=== PATIENT | male | born 1970 | race American Indian/Alaskan Native ===

== ENCOUNTER 2016-06-06 16:37 | Emergency (ER) | payer MEDICAID, OTHER ==
[2016-06-06 16:46] VITALS: BP 157/96; PULSE 78; RESP 16; TEMP 98.3; O2SAT 97; BMI 28.8
--- NOTE | 2016-06-06 16:56 | ED PDOC ---
Arrival/HPI - General Chief Complaint: Eye Problem Time Seen by Provider: 06/06/16 16:51 Historian: Patient - History of Present Illness Narrative History of Present Illness (Text): 06/06/16 16:52 45yo male with PMhx of hypertension present in ED for complaint of left eyebrow lump x one week. States he came to the ED because the swelling became worse. Denies fever, chills, any other complaint. Past Medical History - Provider Review Nursing Documentation Reviewed: Yes - Infectious Disease Hx of Infectious Diseases: None - Tetanus Immunization Tetanus Immunization: Unknown - Cardiac Hx Cardiac Disorders: Yes Hx Hypertension: Yes - Pulmonary Hx Respiratory Disorders: No - Neurological Hx Neurological Disorder: No - HEENT Hx HEENT Disorder: No - Renal Hx Renal Disorder: No - Endocrine/Metabolic Hx Endocrine Disorders: No - Hematological/Oncological Hx Blood Disorders: No - Integumentary Hx Dermatological Disorder: No - Musculoskeletal/Rheumatological Hx Musculoskeletal Disorders: No - Gastrointestinal Hx Gastrointestinal Disorders: No - Genitourinary/Gynecological Hx Genitourinary Disorders: No - Psychiatric Hx Psychophysiologic Disorder: Yes Hx Depression: Yes Hx Emotional Abuse: No Hx Physical Abuse: No Hx Substance Use: No - Surgical History Other/Comment: hemorrhoidectomy 2007 - Suicidal Assessment Feels Threatened In Home Enviroment: No Family/Social History - Physician Review Nursing Documentation Reviewed: Yes Family/Social History: Unknown Family HX Smoking Status: Current Some Days Smoker Hx Alcohol Use: Yes Hx Substance Use: No Allergies/Home Meds Allergies/Adverse Reactions: Allergies No Known Allergies Allergy (Verified 06/18/15 20:11) Home Medications: Home Meds Medication Instructions Recorded Confirmed Hydrochlorothiazide 25 mg PO DAILY 02/19/15 06/18/15 [Hydrochlorothiazide] Review of Systems - Physician Review All systems were reviewed & negative as marked: Yes - Review of Systems Constitutional: Normal Eyes: Normal ENT: Normal Respiratory: Normal Cardiovascular: Normal Gastrointestinal: Normal Genitourinary Male: Normal Musculoskeletal: Normal Neurological: Normal Endocrine: Normal Hemo/Lymphatic: Normal Psychiatric: Normal Physical Exam Vital Signs Reviewed: Yes Vital Signs Temp Pulse Resp BP Pulse Ox 06/06/16 16:44 98.3 F 78 16 157/96 H 97 Temperature: Afebrile Blood Pressure: Normal Pulse: Regular Respiratory Rate: Normal Appearance: Positive for: Well-Appearing, Non-Toxic, Comfortable Pain Distress: None Mental Status: Positive for: Alert and Oriented X 3 - Systems Exam Head: Present: Atraumatic, Normocephalic Pupils: Present: PERRL Extroacular Muscles: Present: EOMI Conjunctiva: Present: Normal Mouth: Present: Moist Mucous Membranes Neck: Present: Normal Range of Motion Respiratory/Chest: Present: Clear to Auscultation, Good Air Exchange. No: Respiratory Distress, Accessory Muscle Use Cardiovascular: Present: Regular Rate and Rhythm, Normal S1, S2. No: Murmurs Abdomen: Present: Normal Bowel Sounds. No: Tenderness, Distention, Peritoneal Signs Back: Present: Normal Inspection Upper Extremity: Present: Normal Inspection. No: Cyanosis, Edema Lower Extremity: Present: Normal Inspection. No: Edema Neurological: Present: GCS=15, CN II-XII Intact, Speech Normal Skin: Present: Warm, Dry, Normal Color, Abscess (Aproximately 1 x 1cm tender pimple/abscess noted inferior to left eyebrow/upper eyelid). No: Rashes Psychiatric: Present: Alert, Oriented x 3, Normal Insight, Normal Concentration Medical Decision Making - Medication Orders Current Medication Orders: Clindamycin HCl (Cleocin) 300 mg PO STAT STA PRN Reason: Protocol Stop: 06/06/16 16:52 Ibuprofen (Motrin Tab) 600 mg PO STAT STA Stop: 06/06/16 16:52 Disposition/Present on Arrival - Present on Arrival Any Indicators Present on Arrival: No History of DVT/PE: No History of Uncontrolled Diabetes: No Urinary Catheter: No History of Decub. Ulcer: No History Surgical Site Infection Following: None - Disposition Have Diagnosis and Disposition been Completed?: Yes Diagnosis: Acne Disposition: HOME/ ROUTINE Disposition Time: 17:00 Patient Plan: Discharge Condition: STABLE Discharge Instructions (ExitCare): Acne (ED) Additional Instructions: Take medication as directed Follow up with your doctor Return to ED for any new or worsening symptoms Prescriptions: Clindamycin [Cleocin] 300 mg PO TID #21 cap Ibuprofen [Motrin Tab] 600 mg PO Q6 #20 tab Referrals: Juno Diop DO [Staff Provider] - Follow up with primary
== END 2016-06-06 17:00 | disposition home or self-care (01) ==
LOC: ED 16:37
DX: L70.9 Acne, unspecified (principal); I10 Essential (primary) hypertension

== ENCOUNTER 2016-09-09 20:10 | Emergency (ER) | payer MEDICAID ==
[2016-09-09 20:17] VITALS: BP 165/106; PULSE 97; TEMP 97.8; O2SAT 98; BMI 29.6
[2016-09-09] MEDS ORDERED: Tmp-Smz 800 mg-160 mg DS Tab PO STA (20:35)
--- NOTE | 2016-09-09 20:38 | ED PDOC ---
Arrival/HPI - General Chief Complaint: Abnormal Skin Integrity Time Seen by Provider: 09/09/16 20:17 Historian: Patient - History of Present Illness Narrative History of Present Illness (Text): 09/09/16 20:35 45 y.o. male whose pmhx includes hypertension who comes to the ED with an itchy rash on his face x 1 week. He says he spoke to Dr. Diop, who told him to discontinue his hydrochlorothiazide. The patient comes to the ED with a worsening rash; no fever or throat itching or swelling or sob. Past Medical History - Infectious Disease Hx of Infectious Diseases: None - Tetanus Immunization Tetanus Immunization: Unknown - Cardiac Hx Cardiac Disorders: Yes Hx Hypertension: Yes - Pulmonary Hx Respiratory Disorders: No - Neurological Hx Neurological Disorder: Yes Hx Migraine: Yes - HEENT Hx HEENT Disorder: No - Renal Hx Renal Disorder: No - Endocrine/Metabolic Hx Endocrine Disorders: No - Hematological/Oncological Hx Blood Disorders: No - Integumentary Hx Dermatological Disorder: No - Musculoskeletal/Rheumatological Hx Musculoskeletal Disorders: No - Gastrointestinal Hx Gastrointestinal Disorders: No - Genitourinary/Gynecological Hx Genitourinary Disorders: No - Psychiatric Hx Psychophysiologic Disorder: Yes Hx Depression: Yes Hx Emotional Abuse: No Hx Physical Abuse: No Hx Substance Use: No - Surgical History Other/Comment: hemorrhoidectomy 2007 - Anesthesia Hx Anesthesia: Yes Hx Anesthesia Reactions: No - Suicidal Assessment Feels Threatened In Home Enviroment: No Family/Social History Family/Social History: No Known Family HX Smoking Status: Current Some Days Smoker Hx Alcohol Use: Yes Hx Substance Use: No Allergies/Home Meds Allergies/Adverse Reactions: Allergies No Known Allergies Allergy (Verified 06/18/15 20:11) Home Medications: Home Meds Medication Instructions Recorded Confirmed Hydrochlorothiazide 25 mg PO DAILY 02/19/15 09/09/16 [Hydrochlorothiazide] Review of Systems - Review of Systems Constitutional: absent: Fevers Eyes: Normal ENT: absent: Other (no throat swelling) Respiratory: absent: SOB, Cough Cardiovascular: absent: Chest Pain Skin: Rash, Pruritis Physical Exam Vital Signs Temp Pulse Resp BP Pulse Ox 09/09/16 20:16 97.8 F 97 H 19 165/106 H 98 Temperature: Afebrile Blood Pressure: Hypertensive Pulse: Regular Respiratory Rate: Normal Appearance: Positive for: Well-Appearing, Non-Toxic, Comfortable Pain Distress: None Mental Status: Positive for: Alert and Oriented X 3 - Systems Exam Head: Present: Atraumatic, Normocephalic, Other (There is a dry scaly rash, about 2x3 cm in the lower forehead above the nasal bridge; mild warmth with mild erythema; no fluctuance) Pupils: Present: PERRL Mouth: Present: Moist Mucous Membranes Pharnyx: Present: Normal. No: ERYTHEMA, EXUDATE, TONSILS ENLARGED, Peritonsilar Swelling, Uvular Deviation, Muffled/Hoarse Voice, Strider, Soft Palate/Uvular Edema Neck: Present: Normal Range of Motion Respiratory/Chest: Present: Clear to Auscultation, Good Air Exchange. No: Respiratory Distress, Accessory Muscle Use Cardiovascular: Present: Regular Rate and Rhythm, Normal S1, S2. No: Murmurs Medical Decision Making ED Course and Treatment: 09/09/16 20:41 Patient with noted history with presentation consistent with dermatitis, possibly allergic. The lesion may also be getting infected with cellulitis. No fluctuance is present to suggest any drainable collection at this time. Will start on oral steroids to avoid topical steroids on face as well as antibiotic. He says he will follow up with Dr. Diop in two days. - Medication Orders Current Medication Orders: Hydroxyzine HCl (Atarax) 25 mg PO ONCE STA Stop: 09/09/16 20:35 Prednisone (Prednisone Tab) 40 mg PO STAT STA Stop: 09/09/16 20:35 Trimethoprim/Sulfamethoxazole (Bactrim Ds Tab) 1 tab PO STAT STA PRN Reason: Protocol Stop: 09/09/16 20:36 Disposition/Present on Arrival - Present on Arrival Any Indicators Present on Arrival: No History of DVT/PE: No History of Uncontrolled Diabetes: No Urinary Catheter: No History of Decub. Ulcer: No History Surgical Site Infection Following: None - Disposition Have Diagnosis and Disposition been Completed?: Yes Diagnosis: Facial dermatitis Disposition: HOME/ ROUTINE Disposition Time: 20:45 Patient Plan: Discharge Condition: GOOD Additional Instructions: Take the medications as prescribed. Follow up with Dr. Diop as scheduled. Return to the emergency department if any new concerning symptoms. Prescriptions: hydrOXYzine HCl [Atarax] 1 tab PO Q6H PRN #20 tab PRN Reason: Itching / Pruritus predniSONE [Prednisone] 2 tab PO DAILY #10 tab Sulfamethoxazole/Trimethoprim [Bactrim DS 800 mg-160 mg] 1 tab PO BID #14 tab Referrals: Juno Diop DO [Primary Care Provider] - Follow up with primary
[2016-09-09 21:15] VITALS: RESP 16
== END 2016-09-09 21:15 | disposition home or self-care (01) ==
LOC: ED 20:10
DX: L30.9 Dermatitis, unspecified (principal)

== ENCOUNTER 2017-02-16 19:47 | Emergency (ER) | payer MEDICAID ==
[2017-02-16 19:47] VITALS: BMI 29.6
[2017-02-16 20:26] VITALS: TEMP 98.8
[2017-02-16] MEDS ORDERED: Promethazine DM 6.25 mg-15 mg/5 ml Syrup PO ONE (20:51)
--- NOTE | 2017-02-16 21:00 | ED PDOC ---
Arrival/HPI - General Chief Complaint: Cough, Cold, Congestion Time Seen by Provider: 02/16/17 20:34 Historian: Patient - History of Present Illness Narrative History of Present Illness (Text): 02/16/17 20:45 Nyla Miller is a 46 year old male, whose past medical history includes hypertension, who presents to the Emergency department complaining of non- productive dry cough. Patient also complaining of an episode of epistaxis earlier today, which has now resolved. Patient denies any fever, chills, chest pain, shortness of breath, nausea, vomiting, headache, dizziness, or any other complaints. Time/Duration: Other (today) Symptom Onset: Gradual Symptom Course: Unchanged Activities at Onset: Light Context: Home Past Medical History - Provider Review Nursing Documentation Reviewed: Yes - Infectious Disease Hx of Infectious Diseases: None - Tetanus Immunization Tetanus Immunization: Unknown - Cardiac Hx Cardiac Disorders: Yes Hx Hypertension: Yes - Pulmonary Hx Respiratory Disorders: No - Neurological Hx Neurological Disorder: No - HEENT Hx HEENT Disorder: No - Renal Hx Renal Disorder: No - Endocrine/Metabolic Hx Endocrine Disorders: No - Hematological/Oncological Hx Blood Disorders: No - Integumentary Hx Dermatological Disorder: No - Musculoskeletal/Rheumatological Hx Musculoskeletal Disorders: No - Gastrointestinal Hx Gastrointestinal Disorders: No - Genitourinary/Gynecological Hx Genitourinary Disorders: No - Psychiatric Hx Psychophysiologic Disorder: Yes Hx Depression: Yes Hx Emotional Abuse: No Hx Physical Abuse: No Hx Substance Use: No - Surgical History Other/Comment: hemorrhoidectomy 2007 - Anesthesia Hx Anesthesia: Yes Hx Anesthesia Reactions: No - Suicidal Assessment Feels Threatened In Home Enviroment: No Family/Social History - Physician Review Nursing Documentation Reviewed: Yes Family/Social History: Unknown Family HX Smoking Status: Current Some Days Smoker Hx Alcohol Use: Yes Hx Substance Use: No Allergies/Home Meds Allergies/Adverse Reactions: Allergies No Known Allergies Allergy (Verified 06/18/15 20:11) Home Medications: Home Meds Medication Instructions Recorded Confirmed hydroCHLOROthiazide [Hydrodiuril] 25 mg PO DAILY 02/16/17 02/16/17 Review of Systems - Physician Review All systems were reviewed & negative as marked: Yes - Review of Systems Constitutional: Normal. absent: Fevers Eyes: Normal ENT: Epistaxis Respiratory: Cough. absent: SOB, Sputum, Wheezing Cardiovascular: Normal. absent: Chest Pain Gastrointestinal: Normal. absent: Abdominal Pain, Diarrhea, Nausea, Vomiting Genitourinary Male: Normal. absent: Dysuria, Frequency, Hematuria, Urinary Output Changes Musculoskeletal: Normal. absent: Back Pain, Neck Pain Skin: Normal. absent: Rash Neurological: Normal. absent: Headache, Dizziness Endocrine: Normal Hemo/Lymphatic: Normal Psychiatric: Normal Physical Exam Vital Signs Reviewed: Yes Vital Signs Temp Pulse Resp BP Pulse Ox 02/16/17 21:10 80 19 150/90 100 02/16/17 20:25 98.8 F 86 16 170/110 H 97 Temperature: Afebrile Blood Pressure: Hypertensive Pulse: Regular Respiratory Rate: Normal Appearance: Positive for: Well-Appearing, Non-Toxic, Comfortable Pain Distress: None Mental Status: Positive for: Alert and Oriented X 3 - Systems Exam Head: Present: Atraumatic, Normocephalic Pupils: Present: PERRL Extroacular Muscles: Present: EOMI Conjunctiva: Present: Normal Ears: Present: Normal, NORMAL TM, Normal Canal. No: Erythema, TM Bulging, Fluid , TM Perf Mouth: Present: Moist Mucous Membranes Pharnyx: Present: Normal. No: ERYTHEMA, EXUDATE, TONSILS ENLARGED, Peritonsilar Swelling, Uvular Deviation, Muffled/Hoarse Voice, Strider, Soft Palate/Uvular Edema Nose (External): Present: Atraumatic Nose (Internal): Present: No Active Bleeding, Other (Dry blood in right naris). No: Epistaxis Neck: Present: Normal Range of Motion Respiratory/Chest: Present: Clear to Auscultation, Good Air Exchange. No: Respiratory Distress, Accessory Muscle Use Cardiovascular: Present: Regular Rate and Rhythm, Normal S1, S2. No: Murmurs Abdomen: Present: Normal Bowel Sounds. No: Tenderness, Distention, Peritoneal Signs Back: Present: Normal Inspection Upper Extremity: Present: Normal Inspection. No: Cyanosis, Edema Lower Extremity: Present: Normal Inspection. No: Edema Neurological: Present: GCS=15, CN II-XII Intact, Speech Normal Skin: Present: Warm, Dry, Normal Color. No: Rashes Psychiatric: Present: Alert, Oriented x 3, Normal Insight, Normal Concentration Medical Decision Making ED Course and Treatment: 02/16/17 20:45 Impression: 46 year old male complaining of non-productive dry cough with 1 episode of epistaxis. Differential Diagnosis included but are not limited to: bronchitis vs. epistaxis Plan: -- Phenergan -- Zithromax -- Reassess and disposition Prior Visits: Notes and results from previous visits were reviewed. On 09/09/2016, pt was seen in the Emergency department for pruritic rash. Pt was d/c home. Progress Notes: On re-evaluation, patient feels better and is in no acute distress. Patient in agreement with plan to be discharged home. Patient is stable for discharge. Patient was instructed to follow up with physician or return if symptoms worsen or new concerning symptoms arise. - Medication Orders Current Medication Orders: Discontinued Medications Azithromycin (Zithromax) 500 mg PO ONCE STA PRN Reason: Protocol Stop: 02/16/17 20:50 Last Admin: 02/16/17 21:16 Dose: 500 mg Promethazine HCl/Dextromethorphan (Phenergan Dm Syrup) 5 ml PO ONCE ONE Stop: 02/16/17 20:52 Last Admin: 02/16/17 21:18 Dose: 5 ml - Scribe Statement The provider has reviewed the documentation as recorded by the Talia Perdomo Provider Scribe Attestation: All medical record entries made by the Sheronibmynor were at my direction and personally dictated by me. I have reviewed the chart and agree that the record accurately reflects my personal performance of the history, physical exam, medical decision making, and the department course for this patient. I have also personally directed, reviewed, and agree with the discharge instructions and disposition. Disposition/Present on Arrival - Present on Arrival Any Indicators Present on Arrival: No History of DVT/PE: No History of Uncontrolled Diabetes: No Urinary Catheter: No History of Decub. Ulcer: No History Surgical Site Infection Following: None - Disposition Have Diagnosis and Disposition been Completed?: Yes Diagnosis: Bronchitis, Epistaxis Disposition: HOME/ ROUTINE Disposition Time: 21:01 Patient Plan: Discharge Condition: STABLE Discharge Instructions (ExitCare): Nosebleed (ED), Acute Bronchitis (ED) Additional Instructions: Take meds as prescribed/use room humidifier/No blowing of nose or digital trauma /follow up with your doctor Prescriptions: Benzonatate [Tessalon Perles] 100 mg PO TID PRN #21 sgl PRN Reason: Cough Azithromycin [Zithromax] 250 mg PO DAILY #4 tab Referrals: Juno Diop [Primary Care Provider] - Follow up with primary Forms: [employer] (Kiswahili)
[2017-02-16 21:11] VITALS: BP 150/90; PULSE 80; RESP 19; O2SAT 100
--- NOTE | 2017-02-17 20:02 | CARD ---
APPROVED REPORT EKG Measurement Heart [id number] <Conclusion> Normal sinus rhythm Normal ECG
== END 2017-02-16 21:20 | disposition home or self-care (01) ==
LOC: ED 19:47
DX: J40 Bronchitis, not specified as acute or chronic (principal); R04.0 Epistaxis; I10 Essential (primary) hypertension

== ENCOUNTER 2017-03-02 16:32 | Emergency (ER) | payer MEDICAID ==
[2017-03-02 16:43] VITALS: O2SAT 100; BMI 30.2
[2017-03-02 17:28] LABS: BASO # 0.01 K/mm3 (0.0-2.0); BASO % 0.2 % (0.0-3.0); EOS # 0.1 (0.0-0.7); EOS % 1.6 % (1.5-5.0); GRAN # 2.62 (1.4-6.5); HEMATOCRIT 42.1 % (42.0-52.0); LYMPH # 1.9 (1.2-3.4); MEAN CELL VOLUME 83.5 fl (80.0-105.0); MEAN CORPUSCULAR HEMOGLOBIN 28.6 pg (25.0-35.0); MEAN CORPUSCULAR HGB CONC 34.2 g/dl (31.0-37.0); MEAN PLATELET VOLUME 10.8 fl (7.0-11.0); MONO # 0.3 (0.1-0.6); MONO % 5.3 % (1.0-6.0); RED CELL DISTRIBUTION WIDTH 13.9 % (11.5-14.5); WHITE BLOOD COUNT 4.9 10^3/ul (4.5-11.0)
[2017-03-02 17:30] LABS: GRAN % 54.9 % (50.0-68.0)
[2017-03-02 17:35] LABS: ALB/GLOB RATIO 1.3 (1.1-1.8); BILIRUBIN,TOTAL 0.6 mg/dL (0.2-1.3); CALCIUM 8.8 mg/dL (8.4-10.5); GFR AFRICAN-AMERICAN > 60; GLUCOSE,RANDOM 98 mg/dL (70-110); LIPASE 92 U/L (23-300); TOTAL PROTEIN 7.5 g/dL (5.8-8.3)
[2017-03-02 17:53] LABS: TROPONIN I 0.02 ng/mL
[2017-03-02 17:56] LABS: ALKALINE PHOSPHATASE 77 U/L (38-126); ALT/SGPT 133 U/L (7-56); AST/SGOT 120 U/L (17-59); BLOOD UREA NITROGEN 11 mg/dL (7-21); CARBON DIOXIDE 25 mmol/L (21-33); CHLORIDE 107 mmol/L (98-107); SODIUM 139 mmol/L (132-148)
--- NOTE | 2017-03-02 18:07 | ED PDOC ---
Arrival/HPI - General Historian: Patient - History of Present Illness Time/Duration: < week Symptom Onset: Sudden Symptom Course: Unchanged Activities at Onset: Rest Context: Home - General Chief Complaint: Back Pain Time Seen by Provider: 03/02/17 16:55 - History of Present Illness Narrative History of Present Illness (Text): 03/02/17 18:29 A 46 year old male, whose past medical history includes hypertension, presents to the emergency department complaining of left flank pain for the past three days. Patient reports left flank pain developed three days ago and describes it as a constant and sharp pain. Reports to taking aspirin with some improvement. No pleuritic components, not worse with movement. Denies any trauma or injury. Patient denies any fever, chills, cough, shortness of breath, chest pain, nausea , vomiting, diarrhea, urinary symptoms, abdominal pain or any other complaints at this time. No history of kidney stones. PMD: Dr. Diop (Manda Camacho PA-C) Past Medical History - Provider Review Nursing Documentation Reviewed: Yes - Infectious Disease Hx of Infectious Diseases: None - Tetanus Immunization Tetanus Immunization: Unknown - Cardiac Hx Cardiac Disorders: Yes Hx Hypertension: Yes - Pulmonary Hx Respiratory Disorders: No - Neurological Hx Neurological Disorder: No - HEENT Hx HEENT Disorder: No - Renal Hx Renal Disorder: No - Endocrine/Metabolic Hx Endocrine Disorders: No - Hematological/Oncological Hx Blood Disorders: No - Integumentary Hx Dermatological Disorder: No - Musculoskeletal/Rheumatological Hx Musculoskeletal Disorders: No - Gastrointestinal Hx Gastrointestinal Disorders: No - Genitourinary/Gynecological Hx Genitourinary Disorders: No - Psychiatric Hx Psychophysiologic Disorder: Yes Hx Depression: Yes Hx Emotional Abuse: No Hx Physical Abuse: No Hx Substance Use: No - Surgical History Other/Comment: hemorrhoidectomy 2007 - Anesthesia Hx Anesthesia: Yes Hx Anesthesia Reactions: No - Suicidal Assessment Feels Threatened In Home Enviroment: No Family/Social History - Physician Review Nursing Documentation Reviewed: Yes Family/Social History: No Known Family HX Smoking Status: Current Some Days Smoker Hx Alcohol Use: Yes Hx Substance Use: No Allergies/Home Meds Allergies/Adverse Reactions: Allergies No Known Allergies Allergy (Verified 03/02/17 16:43) Home Medications: Home Meds Medication Instructions Recorded Confirmed hydroCHLOROthiazide [Hydrodiuril] 25 mg PO DAILY 02/16/17 03/02/17 Review of Systems - Physician Review All systems were reviewed & negative as marked: Yes - Review of Systems Constitutional: absent: Fevers, Other (chills) Respiratory: absent: SOB, Cough Cardiovascular: absent: Chest Pain Gastrointestinal: absent: Abdominal Pain, Diarrhea, Nausea, Vomiting Genitourinary Male: absent: Dysuria, Frequency, Hematuria Musculoskeletal: Other (left flank pain) Physical Exam Vital Signs Reviewed: Yes Temperature: Afebrile Blood Pressure: Hypertensive Pulse: Regular Respiratory Rate: Normal Appearance: Positive for: Well-Appearing, Non-Toxic, Comfortable Pain Distress: None Mental Status: Positive for: Alert and Oriented X 3 - Systems Exam Head: Present: Atraumatic, Normocephalic Pupils: Present: PERRL Extroacular Muscles: Present: EOMI Conjunctiva: Present: Normal Mouth: Present: Moist Mucous Membranes Neck: Present: Normal Range of Motion Respiratory/Chest: Present: Clear to Auscultation, Good Air Exchange. No: Respiratory Distress, Accessory Muscle Use Cardiovascular: Present: Regular Rate and Rhythm, Normal S1, S2. No: Murmurs Abdomen: Present: Normal Bowel Sounds. No: Tenderness, Distention, Peritoneal Signs Back: Present: Normal Inspection Upper Extremity: Present: Normal Inspection. No: Cyanosis, Edema Lower Extremity: Present: Normal Inspection. No: Edema Neurological: Present: GCS=15, CN II-XII Intact, Speech Normal Skin: Present: Warm, Dry, Normal Color. No: Rashes Psychiatric: Present: Alert, Oriented x 3, Normal Insight, Normal Concentration Vital Signs Temp Pulse Resp BP Pulse Ox 03/02/17 20:00 98.4 F 77 17 150/90 100 03/02/17 18:32 98.2 F 78 17 150/98 H 100 03/02/17 16:43 98.0 F 77 18 155/104 H 100 03/02/17 16:42 98.0 F 77 17 155/104 H 100 Medical Decision Making - Lab Interpretations I have reviewed the lab results: Yes - EKG Interpretation Interpreted by ED Physician: Yes Type: 12 lead EKG ED Course and Treatment: 03/02/17 18:27 Impression: A 46 year old male with left flank pain. Plan: -- EKG -- chest xray -- US abdomen -- labs -- Urinalysis -- Reassess and disposition Prior Visits: Notes and results from previous visits were reviewed. Patient was last seen in the emergency department on 02/16/17 for evaluation of non-productive dry cough and episode of epistaxis. Progress Notes: 03/02/17 18:24 chest xray Creator : Jenna Parry MD FINDINGS: LUNGS: Biapical pleural thickening. No focal consolidation. Please note that chest x-ray has limited sensitivity for the detection of pulmonary masses. PLEURA: No significant pleural effusion identified. No definite pneumothorax . CARDIOVASCULAR: Heart size appears within normal limits. Ectatic aorta. OSSEOUS STRUCTURES: No acute osseous abnormality identified. VISUALIZED UPPER ABDOMEN: Unremarkable. IMPRESSION: Biapical pleural thickening. No focal consolidation, significant pleural effusion, or definite pneumothorax identified. 03/02/17 18:15 US abdomen Creator : Rocky Medley MD IMPRESSION: Echogenic hepatic parenchyma likely representing fatty hepatic infiltration however other infiltrative hepatocellular disease process not excluded. Small exophytic cyst mid to lower pole left kidney EKG: Ordered, reviewed, and independently interpreted the EKG. Rate : 68 BPM Rhythm : NSR Interpretation : No ST-segment elevations or depressions, no T-wave inversions, normal intervals. On reevaluation, patient is laying in bed comfortably in no acute distress. Denies any shortness of breath, chest pain, abdominal pain, nausea, vomiting. On repeat exam, lungs are clear to auscultation, cardiac regular rate and rhythm , abdomen remained soft and nontender. VS : T 98.4 P 77 BP 150/90 R 17 O2sat 100 %. Lab results reviewed and are wnl, trop (-), UA is (-) for blood and infection. CXR and US abdomen shows no acute findings. Diagnostic results d/w the patient. Patient advised to follow up with primary care physician in 1-2 days without fail. Return to the emergency room at any time for any new or worsening symptoms. Patient states he fully agrees with and understands discharge instructions. States that he agrees with the plan and disposition. Verbalized and repeated discharge instructions and plan. I have given the patient opportunity to ask any additional questions. (Doug SPICER,Manda Lawton) - Lab Interpretations Lab Results: 03/02/17 17:15 03/02/17 17:15 Lab Results 03/02/17 18:46: Urine Color Yellow, Urine Appearance Clear, Urine pH 6.0, Ur Specific Alexander >= 1.030, Urine Protein Negative, Urine Glucose (UA) Negative, Urine Ketones Negative, Urine Blood Negative, Urine Nitrate Negative, Urine Bilirubin Negative, Urine Urobilinogen 0.2, Ur Leukocyte Esterase Negative 03/02/17 17:15: Sodium 139, Potassium 4.0, Chloride 107, Carbon Dioxide 25, Anion Gap 11, BUN 11, Creatinine 1.1, Est GFR ( Amer) > 60, Est GFR (Non- Af Amer) > 60, Random Glucose 98, Calcium 8.8, Total Bilirubin 0.6, AST 120 H, ALT 133 H, Alkaline Phosphatase 77, Troponin I 0.02, Total Protein 7.5, Albumin 4.3, Globulin 3.2, Albumin/Globulin Ratio 1.3, Lipase 92 03/02/17 17:15: WBC 4.9, RBC 5.04, Hgb 14.4, Hct 42.1, MCV 83.5, MCH 28.6, MCHC 34.2, RDW 13.9, Plt Count 181, MPV 10.8, Gran % 54.9, Lymph % (Auto) 38.0 H, Bell % (Auto) 5.3, Eos % (Auto) 1.6, Baso % (Auto) 0.2, Gran # 2.62, Lymph # 1.9 , Bell # 0.3, Eos # 0.1, Baso # 0.01 - RAD Interpretation Radiology Orders: 03/02/17 CHEST TWO VIEWS (PA/LAT) [RAD] Stat 03/02/17 17:02 ABDOMEN COMPLETE [US] Stat - Medication Orders Current Medication Orders: Discontinued Medications Naproxen (Anaprox Ds) 550 mg PO ONCE STA Stop: 03/02/17 20:03 - PA / FORGING ROLL OPERATOR / Resident Statement MD/DO has reviewed & agrees with the documentation as recorded. - Scribe Statement The provider has reviewed the documentation as recorded by the Scribe - Scribe Statement Ailyn Nugent Provider Scribe Attestation: All medical record entries made by the Scribe were at my direction and personally dictated by me. I have reviewed the chart and agree that the record accurately reflects my personal performance of the history, physical exam, medical decision making, and the department course for this patient. I have also personally directed, reviewed, and agree with the discharge instructions and disposition. (Doug SPICER,Manda Lawton) Disposition/Present on Arrival - Present on Arrival Any Indicators Present on Arrival: No History of DVT/PE: No History of Uncontrolled Diabetes: No Urinary Catheter: No History of Decub. Ulcer: No History Surgical Site Infection Following: None - Disposition Have Diagnosis and Disposition been Completed?: Yes Disposition Time: 19:53 Patient Plan: Discharge - Disposition Diagnosis: Left flank pain Disposition: HOME/ ROUTINE Condition: STABLE Discharge Instructions (ExitCare): Flank Pain (ED) Print Language: UGANDAN Additional Instructions: Thank you for letting us take care of you today. You were treated for flank pain - likely musculoskeletal pain. The emergency medical care you received today was directed at your acute symptoms. Return to the Emergency Department if your symptoms worsen, do not improve, or if you have any other problems. Please contact your doctor in 2 days for re-evaluation and follow up / or call one of the physicians/clinics you have been referred to that are listed on the Patient Visit Information form that is included in your discharge packet. Bring any paperwork you were given at discharge with you along with any medications you are taking to your follow up visit. Our treatment cannot replace ongoing medical care by a primary care provider (PCP) outside of the emergency department. Thank you for allowing the [facility] team to be part of your care today. Referrals: Paramjit Rogers MD [Staff Provider] - Follow up with primary Juno Diop DO [Primary Care Provider] - Follow up with primary Forms: [employer] ([employer])
--- NOTE | 2017-03-02 18:13 | US ---
HISTORY: Left flank pain. Rule out renal colic. Rule out hydronephrosis. COMPARISON: None. TECHNIQUE: Sonographic evaluation of the abdomen. FINDINGS: LIVER: Liver measures approximately 15 cm in CC dimension. Liver demonstrates smooth contour though increased echotexture likely fatty infiltration however other infiltrative hepatocellular disease process not excluded. No obvious hepatic masses or collections seen on images presented. . No gross intrahepatic biliary ductal dilatation. No evidence of ascites GALLBLADDER: Unremarkable. No gallstones. No pericholecystic fluid collections or sonographic Casillas sign. COMMON BILE DUCT: Measures 4.6 mm. No stones. No dilatation. PANCREAS: Unremarkable as visualized. No mass. No ductal dilatation. RIGHT KIDNEY: Right kidney measures approximate 10.7 x 4.5 x 5.8cm. Normal echogenicity. No calculus, mass, or hydronephrosis. . LEFT KIDNEY: Left kidney measures approximate 11.8 x 4.4 x 5.8cm. Normal echogenicity. No calculus, mass, or hydronephrosis.There is a small exophytic cyst mid-lower pole left kidney that measures approximately 1.3 cm in greatest dimension. SPLEEN: Spleen exhibits normal size measuring approximately 9.6 cm in greatest dimension. No splenic masses collections or calcifications seen on images presented. AORTA: No aneurysmal dilatation. IVC: Unremarkable. OTHER FINDINGS: None. IMPRESSION: Echogenic hepatic parenchyma likely representing fatty hepatic infiltration however other infiltrative hepatocellular disease process not excluded. Small exophytic cyst mid to lower pole left kidney
--- NOTE | 2017-03-02 18:23 | RAD ---
HISTORY: L flank pain COMPARISON: Chest x-ray performed 08/29/14 TECHNIQUE: Chest PA and lateral FINDINGS: LUNGS: Biapical pleural thickening. No focal consolidation. Please note that chest x-ray has limited sensitivity for the detection of pulmonary masses. PLEURA: No significant pleural effusion identified. No definite pneumothorax . CARDIOVASCULAR: Heart size appears within normal limits. Ectatic aorta. OSSEOUS STRUCTURES: No acute osseous abnormality identified. VISUALIZED UPPER ABDOMEN: Unremarkable. OTHER FINDINGS: None. IMPRESSION: Biapical pleural thickening. No focal consolidation, significant pleural effusion, or definite pneumothorax identified.
[2017-03-02 19:07] LABS: URINE BILIRUBIN NEGATIVE (NEGATIVE); URINE BLOOD NEGATIVE (NEGATIVE); URINE GLUCOSE (UA) NEGATIVE (NEGATIVE); URINE KETONE NEGATIVE (NEGATIVE); URINE LEUKOCYTE ESTERASE NEGATIVE Leu/uL (NEGATIVE); URINE PROTEIN NEGATIVE mg/dL (<30 mg/dL); URINE UROBILINOGEN 0.2 E.U./dL (<1 E.U./dL)
[2017-03-02 19:12] LABS: URINE APPEARANCE CLEAR (CLEAR); URINE COLOR YELLOW (YELLOW)
[2017-03-02 19:14] VITALS: RESP 17
[2017-03-02] MEDS ORDERED: Naproxen 550 mg Tab PO STA (20:02)
[2017-03-02 20:16] VITALS: BP 150/90; PULSE 77; TEMP 98.4
--- NOTE | 2017-03-03 17:50 | CARD ---
APPROVED REPORT EKG Measurement Heart [id number] <Conclusion> Normal sinus rhythm T wave abnormality, consider inferior ischemia Abnormal ECG
== END 2017-03-02 20:16 | disposition home or self-care (01) ==
LOC: ED 16:32
DX: R10.9 Unspecified abdominal pain (principal); I10 Essential (primary) hypertension

== ENCOUNTER 2017-07-28 02:02 | Emergency (ER) | payer MEDICAID ==
[2017-07-28 02:22] VITALS: RESP 18
[2017-07-28 02:27] VITALS: BMI 31.1
--- NOTE | 2017-07-28 02:46 | ED PDOC ---
Arrival/HPI - General Chief Complaint: Upper Extremity Problem/Injury Time Seen by Provider: 07/28/17 02:23 - History of Present Illness Narrative History of Present Illness (Text): 07/28/17 02:44 Patient is a 46 year old male who presents to the Emergency department complaining of right shoulder and neck pain, which started yesterday. Patient denies any other associated symptoms. He denies any fever, chills, dyspnea, chest pain, or other symptoms at this point in time. Time/Duration: 24 hours (Yesterday) Past Medical History - Provider Review Nursing Documentation Reviewed: Yes - Infectious Disease Hx of Infectious Diseases: None - Tetanus Immunization Tetanus Immunization: Unknown - Cardiac Hx Cardiac Disorders: Yes Hx Hypertension: Yes - Pulmonary Hx Respiratory Disorders: No - Neurological Hx Neurological Disorder: No - HEENT Hx HEENT Disorder: No - Renal Hx Renal Disorder: No - Endocrine/Metabolic Hx Endocrine Disorders: No - Hematological/Oncological Hx Blood Disorders: No - Integumentary Hx Dermatological Disorder: No - Musculoskeletal/Rheumatological Hx Musculoskeletal Disorders: No - Gastrointestinal Hx Gastrointestinal Disorders: No - Genitourinary/Gynecological Hx Genitourinary Disorders: No - Psychiatric Hx Psychophysiologic Disorder: Yes Hx Depression: Yes Hx Physical Abuse: No Hx Substance Use: No - Surgical History Other/Comment: hemorrhoidectomy 2007 - Anesthesia Hx Anesthesia: Yes Hx Anesthesia Reactions: No - Suicidal Assessment Feels Threatened In Home Enviroment: No Family/Social History - Physician Review Nursing Documentation Reviewed: Yes Family/Social History: No Known Family HX Smoking Status: Current Some Days Smoker Hx Alcohol Use: Yes Hx Substance Use: No Allergies/Home Meds Allergies/Adverse Reactions: Allergies No Known Allergies Allergy (Verified 07/28/17 02:27) Home Medications: Home Meds Medication Instructions Recorded Confirmed hydroCHLOROthiazide [Hydrodiuril] 25 mg PO DAILY 02/16/17 07/28/17 Review of Systems - Physician Review All systems were reviewed & negative as marked: Yes - Review of Systems Constitutional: absent: Fevers, Night Sweats Respiratory: absent: SOB Cardiovascular: absent: Chest Pain Musculoskeletal: Neck Pain (neck and shoulder pain) Physical Exam Vital Signs Reviewed: Yes Vital Signs Temp Pulse Resp BP Pulse Ox 07/28/17 04:00 97.6 F 78 18 140/84 98 07/28/17 02:21 97.8 F 81 18 152/106 H 97 Blood Pressure: Hypertensive Pulse: Regular Respiratory Rate: Normal Appearance: Positive for: Well-Appearing Mental Status: Positive for: Alert and Oriented X 3 - Systems Exam Head: Present: Atraumatic, Normocephalic Pupils: Present: PERRL Extroacular Muscles: Present: EOMI Conjunctiva: Present: Normal Mouth: Present: Moist Mucous Membranes Neck: Present: Normal Range of Motion, Paraspinal Tenderness (Right paraservical muscle spasm). No: MIDLINE TENDERNESS Respiratory/Chest: Present: Clear to Auscultation, Good Air Exchange. No: Respiratory Distress, Accessory Muscle Use Cardiovascular: Present: Regular Rate and Rhythm, Normal S1, S2. No: Murmurs Abdomen: No: Tenderness, Distention, Peritoneal Signs Back: Present: Normal Inspection Upper Extremity: Present: Normal Inspection. No: Cyanosis, Edema Lower Extremity: Present: Normal Inspection. No: Edema Neurological: Present: GCS=15, CN II-XII Intact, Speech Normal Skin: Present: Warm, Dry, Normal Color. No: Rashes Psychiatric: Present: Alert, Oriented x 3, Normal Insight, Normal Concentration Medical Decision Making ED Course and Treatment: 07/28/17 02:44 Impression: Patient is a 46 year old male who is experiencing right neck and shoulder pain. Differential Diagnosis included but are not limited to: Torticollis vs muscle strain vs muscle spasm Plan: --Flexeril --Toradol IM -- Reassess and disposition Prior Visits: Notes and results from previous visits were reviewed. Patient was last seen in the emergency department on 03/02/17 for left flank pain and was evaluated and discharged. Progress Notes: 07/28/17 04:07 Reevaluation: On reevaluation the patient feels better and is in no acute distress. I have discussed the results and plan with the patient, who expresses understanding. Patient given the opportunity to ask question, all questions were answered and there is agreement with the plan to discharge the patient home with prescription for Flexeril and Naprosyn. Patient is stable for discharge. Patient was instructed to follow up with physician/clinic in 1-2 days or return if symptoms persist/worsen or new concerning symptoms arise. - Medication Orders Current Medication Orders: Discontinued Medications Cyclobenzaprine HCl (Flexeril) 10 mg PO ONCE ONE Stop: 07/28/17 02:48 Last Admin: 07/28/17 03:03 Dose: 10 mg Ketorolac Tromethamine (Toradol) 60 mg IM ONCE ONE Stop: 07/28/17 02:48 Last Admin: 07/28/17 03:04 Dose: 60 mg MAR Pain Assessment Document 07/28/17 03:04 WALLACE (Rec: 07/28/17 03:04 WALLACE [id number]) Pain Reassessment Is this a pain reassessment? Yes Presence of Pain Presence of Pain Yes Location Pain Location Body Site Shoulder IM Administration Charges Document 07/28/17 03:04 WALLACE (Rec: 07/28/17 03:04 WALLACE [id number]) Charges for Administration # of IM Administrations 1 - Scribe Statement The provider has reviewed the documentation as recorded by the Scribe Gabriel Buenrostro Provider Scribe Attestation: All medical record entries made by the Scribe were at my direction and personally dictated by me. I have reviewed the chart and agree that the record accurately reflects my personal performance of the history, physical exam, medical decision making, and the department course for this patient. I have also personally directed, reviewed, and agree with the discharge instructions and disposition Disposition/Present on Arrival - Present on Arrival Any Indicators Present on Arrival: No History of DVT/PE: No History of Uncontrolled Diabetes: No Urinary Catheter: No History of Decub. Ulcer: No History Surgical Site Infection Following: None - Disposition Have Diagnosis and Disposition been Completed?: Yes Diagnosis: Neck muscle strain, Muscle spasm Disposition: HOME/ ROUTINE Disposition Time: 04:08 Patient Plan: Discharge Condition: GOOD Discharge Instructions (ExitCare): Muscle Strain (DC), Muscle Spasms (DC) Additional Instructions: May apply warm compresses to the area/take meds as directed/follow up with your doctor this week Prescriptions: Cyclobenzaprine [Cyclobenzaprine HCl] 10 mg PO TID PRN #15 tab PRN Reason: Muscle Spasm Naproxen [Naprosyn] 500 mg PO BID PRN #14 tab PRN Reason: Pain Forms: [facility] (Chinese), WORK NOTE
[2017-07-28 05:01] VITALS: BP 140/84; PULSE 78; TEMP 97.6; O2SAT 98
== END 2017-07-28 04:15 | disposition home or self-care (01) ==
LOC: ED 02:02
DX: S16.1XXA Strain of muscle, fascia and tendon at neck level, initial encounter (principal); X58.XXXA Exposure to other specified factors, initial encounter; Y92.9 Unspecified place or not applicable; M62.838 Other muscle spasm
CPT/HCPCS: 96372; 99284; J1885

== ENCOUNTER 2017-12-22 22:23 | Emergency (ER) | payer MEDICAID ==
[2017-12-22 22:23] VITALS: BMI 31.1
[2017-12-22 22:43] VITALS: RESP 18; TEMP 98.5
--- NOTE | 2017-12-22 23:38 | ED PDOC ---
Arrival/HPI - General Chief Complaint: Cough, Cold, Congestion Time Seen by Provider: 12/22/17 23:11 Historian: Patient - History of Present Illness Narrative History of Present Illness (Text): 12/22/17 23:48 Patient is a 47-year-old male with past medical history of hypertension, complains of productive cough, chest congestion and sore throat 3 days. Otherwise: (-) fever, (-) chills, (-) chest pain, (-) dyspnea, (-) SOB, (-) hemoptysis, (-) upper back pain, (-) travel, (-) recent prolonged immobility, (+) smoker x 5 years. Patient adds that he forgot to take his bp medication today. Past Medical History - Infectious Disease Hx of Infectious Diseases: None - Tetanus Immunization Tetanus Immunization: Unknown - Cardiac Hx Cardiac Disorders: Yes Hx Hypertension: Yes - Pulmonary Hx Respiratory Disorders: No - Neurological Hx Neurological Disorder: No - HEENT Hx HEENT Disorder: No - Renal Hx Renal Disorder: No - Endocrine/Metabolic Hx Endocrine Disorders: No - Hematological/Oncological Hx Blood Disorders: No - Integumentary Hx Dermatological Disorder: No - Musculoskeletal/Rheumatological Hx Musculoskeletal Disorders: No - Gastrointestinal Hx Gastrointestinal Disorders: No - Genitourinary/Gynecological Hx Genitourinary Disorders: No - Psychiatric Hx Psychophysiologic Disorder: Yes Hx Depression: Yes Hx Physical Abuse: No Hx Substance Use: No - Surgical History Other/Comment: hemorrhoidectomy 2007 - Anesthesia Hx Anesthesia: Yes Hx Anesthesia Reactions: No - Suicidal Assessment Feels Threatened In Home Enviroment: No Family/Social History Family/Social History: No Known Family HX Smoking Status: Current Some Days Smoker Hx Alcohol Use: Yes Hx Substance Use: No Allergies/Home Meds Allergies/Adverse Reactions: Allergies No Known Allergies Allergy (Verified 07/28/17 02:27) Home Medications: Home Meds Medication Instructions Recorded Confirmed hydroCHLOROthiazide [Hydrodiuril] 25 mg PO DAILY 02/16/17 07/28/17 Review of Systems - Review of Systems Constitutional: absent: Fatigue, Fevers ENT: Sore Throat. absent: Rhinorrhea, Sinus Congestion Respiratory: Cough, Sputum. absent: SOB Cardiovascular: absent: Chest Pain, Palpitations Gastrointestinal: absent: Abdominal Pain, Diarrhea, Vomiting Genitourinary Male: absent: Dysuria, Frequency, Hematuria Musculoskeletal: absent: Arthralgias, Back Pain, Neck Pain, Joint Swelling Skin: absent: Rash, Pruritis, Skin Lesions Neurological: absent: Headache, Dizziness Physical Exam Vital Signs Temp Pulse Resp BP Pulse Ox 12/22/17 22:41 98.5 F 85 18 157/103 H 98 Temperature: Afebrile Blood Pressure: Hypertensive Pulse: Regular Respiratory Rate: Normal Appearance: Positive for: Well-Appearing, Non-Toxic, Comfortable Pain Distress: None Mental Status: Positive for: Alert and Oriented X 3 - Systems Exam Head: Present: Atraumatic, Normocephalic Pupils: Present: PERRL Extroacular Muscles: Present: EOMI Conjunctiva: Present: Normal Ears: Present: Normal, NORMAL TM, Normal Canal. No: Erythema, TM Bulging Mouth: Present: Moist Mucous Membranes Pharnyx: Present: Normal. No: ERYTHEMA, EXUDATE, TONSILS ENLARGED, Peritonsilar Swelling, Uvular Deviation, Strider Neck: Present: Normal Range of Motion. No: Meningeal Signs, Lymphadenopathy Respiratory/Chest: Present: Clear to Auscultation, Good Air Exchange. No: Respiratory Distress, Accessory Muscle Use, Wheezes, Rales, Rhonchi Cardiovascular: Present: Regular Rate and Rhythm, Normal S1, S2. No: Murmurs Back: Present: Normal Inspection Upper Extremity: Present: Normal Inspection. No: Cyanosis, Edema Lower Extremity: Present: Normal Inspection. No: Edema Neurological: Present: GCS=15, CN II-XII Intact, Speech Normal, Motor Func Grossly Intact, Normal Sensory Function Skin: Present: Warm, Dry, Normal Color. No: Rashes Psychiatric: Present: Alert, Oriented x 3, Normal Insight, Normal Concentration Medical Decision Making ED Course and Treatment: 12/22/17 23:50 Diagnosis of bronchitis discussed with the patient. The importance of smoking cessation and its benefits was discussed with the patient. Patient encouraged to take his pressure medication daily, benefits of adequate blood pressure control discussed with the patient. Advised to follow up with primary care physician in 1-2 days without fail. Adv ised to take medication as prescribed. Return to the emergency room at any time for any new or worsening symptoms. Patient states he fully agrees with and understands discharge instructions. States that he agrees with the plan and disposition. Verbalized and repeated discharge instructions and plan. I have given the patient opportunity to ask any additional questions. - PA / [employer] / Resident Statement MD/DO has reviewed & agrees with the documentation as recorded. Disposition/Present on Arrival - Present on Arrival Any Indicators Present on Arrival: No History of DVT/PE: No History of Uncontrolled Diabetes: No Urinary Catheter: No History of Decub. Ulcer: No History Surgical Site Infection Following: None - Disposition Have Diagnosis and Disposition been Completed?: Yes Diagnosis: Acute bronchitis Disposition: HOME/ ROUTINE Disposition Time: 23:30 Patient Plan: Discharge Patient Problems: Current Active Problems Problem Status Onset Acute bronchitis Acute Condition: STABLE Discharge Instructions (ExitCare): Acute Bronchitis, Adult (DC) Additional Instructions: Thank you for letting us take care of you today. You were treated for bronchitis. The emergency medical care you received today was directed at your acute symptoms. If you were prescribed any medication, please fill it and take as directed. It may take several days for your symptoms to resolve. Return to the Emergency Department if your symptoms worsen, do not improve, or if you have any other problems. Please contact your doctor in 2 days for re-evaluation and follow up. Bring any paperwork you were given at discharge with you along with any medications you are taking to your follow up visit. Our treatment cannot replace ongoing medical care by a primary care provider (PCP) outside of the emergency department. Thank you for allowing the [facility] team to be part of your care today. Prescriptions: Azithromycin [Z-Bayron] 250 mg PO DAILY #6 tab Guaifenesin [Adult Tussin Chest Congestion] 200 mg PO Q6H PRN #200 ml PRN Reason: Cough Forms: [facility] ([place]zeri), WORK NOTE
[2017-12-22 23:52] VITALS: BP 156/78; PULSE 87; O2SAT 100
== END 2017-12-22 23:51 | disposition home or self-care (01) ==
LOC: ED 22:23
DX: J20.9 Acute bronchitis, unspecified (principal); F17.210 Nicotine dependence, cigarettes, uncomplicated

== ENCOUNTER 2018-04-26 17:28 | Emergency (ER) | payer MEDICAID ==
[2018-04-26 17:29] VITALS: BMI 31.1
== END 2018-04-26 18:26 | disposition left against medical advice (07) ==
LOC: ED 17:28
DX: Z02.89 Encounter for other administrative examinations (principal); R05 Cough

== ENCOUNTER 2018-07-19 01:38 | Emergency (ER) | payer MEDICAID ==
[2018-07-19 01:47] VITALS: BMI 29.4
[2018-07-19 01:52] VITALS: BP 161/122; PULSE 89; RESP 18; TEMP 97.4; O2SAT 100
--- NOTE | 2018-07-19 01:52 | ED PDOC ---
Arrival/HPI - General Time Seen by Provider: 07/19/18 01:45 - History of Present Illness Narrative History of Present Illness (Text): 47 yr old male w/ hx of shoulder pain, HTN p/w L sided shoulder pain. Pt notes shoulder pain and L sided neck stiffness started 2 days ago. He notes pain is worse when he moves his L shoulder and his neck. He denies any fall or trauma. No chest pain or shortness of breath. No upper back pain. No headache. He denies any MVA. He notes that he did not take any pain medications for the pain. No other complaints Past Medical History - Infectious Disease Hx of Infectious Diseases: None - Tetanus Immunization Tetanus Immunization: Unknown - Cardiac Hx Cardiac Disorders: Yes Hx Hypertension: Yes - Pulmonary Hx Respiratory Disorders: No - Neurological Hx Neurological Disorder: No - HEENT Hx HEENT Disorder: No - Renal Hx Renal Disorder: No - Endocrine/Metabolic Hx Endocrine Disorders: No - Hematological/Oncological Hx Blood Disorders: No - Integumentary Hx Dermatological Disorder: No - Musculoskeletal/Rheumatological Hx Musculoskeletal Disorders: No - Gastrointestinal Hx Gastrointestinal Disorders: No - Genitourinary/Gynecological Hx Genitourinary Disorders: No - Psychiatric Hx Psychophysiologic Disorder: Yes Hx Depression: Yes Hx Physical Abuse: No Hx Substance Use: No - Surgical History Other/Comment: hemorrhoidectomy 2007 - Anesthesia Hx Anesthesia: Yes Hx Anesthesia Reactions: No - Suicidal Assessment Feels Threatened In Home Enviroment: No Family/Social History Family/Social History: Unknown Family HX Smoking Status: Current Some Days Smoker Hx Alcohol Use: Yes Hx Substance Use: No Allergies/Home Meds Allergies/Adverse Reactions: Allergies No Known Allergies Allergy (Verified 07/28/17 02:27) Home Medications: Home Meds Medication Instructions Recorded Confirmed hydroCHLOROthiazide [Hydrodiuril] 25 mg PO DAILY 02/16/17 07/28/17 Review of Systems - Review of Systems Constitutional: absent: Fatigue, Weight Change, Fevers Eyes: absent: Vision Changes, Photophobia ENT: absent: Hearing Changes, Tinnitus Respiratory: absent: SOB, Cough Cardiovascular: absent: Chest Pain, Palpitations, Edema, Calf Pain, CAREY Gastrointestinal: absent: Abdominal Pain Genitourinary Male: absent: Dysuria, Frequency Musculoskeletal: Arthralgias (L shoulder), Neck Pain. absent: Back Pain Skin: absent: Rash, Pruritis, Skin Lesions Neurological: absent: Headache, Dizziness Endocrine: absent: Diaphoresis, Polyuria Hemo/Lymphatic: absent: Adenopathy Physical Exam Temperature: Afebrile Pulse: Regular Respiratory Rate: Normal Appearance: Positive for: Well-Appearing, Non-Toxic, Comfortable Pain Distress: None Mental Status: Positive for: Alert and Oriented X 3 - Systems Exam Head: Present: Atraumatic, Normocephalic Pupils: Present: PERRL Extroacular Muscles: Present: EOMI Conjunctiva: Present: Normal Mouth: Present: Moist Mucous Membranes Neck: Present: Normal Range of Motion, Paraspinal Tenderness (L neck), Trachea Midline. No: Meningeal Signs, MIDLINE TENDERNESS, JVD, Lymphadenopathy, Bruit Respiratory/Chest: Present: Clear to Auscultation, Good Air Exchange. No: Respiratory Distress, Accessory Muscle Use Cardiovascular: Present: Regular Rate and Rhythm, Normal S1, S2. No: Murmurs Abdomen: No: Tenderness, Distention, Peritoneal Signs Back: Present: Normal Inspection. No: CVA Tenderness, Midline Tenderness, Paraspinal Tenderness Upper Extremity: Present: Normal Inspection, Normal ROM, NORMAL PULSES, Tenderne ss (upper shoulder, radiating to neck along trapezius muscle, ttp), Neurovascularly Intact, Capillary Refill < 2s. No: Cyanosis, Edema, Swelling, Deformity Lower Extremity: Present: Normal Inspection, NORMAL PULSES, Neurovascularly Intact, Capillary Refill < 2 s. No: Edema, Tenderness, Swelling Neurological: Present: GCS=15, CN II-XII Intact, Speech Normal, Motor Func Grossly Intact Skin: Present: Warm, Dry, Normal Color. No: Rashes Psychiatric: Present: Alert, Oriented x 3, Normal Insight, Normal Concentration Medical Decision Making ED Course and Treatment: 47 yr old male p/w L sided shoulder pain along trapezius to L paraspinal mid cervical area. No FND or headache / fever or meningeal signs on exam. Pain is reproducible on palpation and with movement of L shoulder. No chest pain or shortness of breath. No nausea or vomiting or abdominal pain. No midline cervical pain. Likely muscular strain. Pending pain control 07/19/18 02:32 pain much improved, pt remains chest pain free pt in NAD, clear for d/c home with return indications and f/u, pt agreeable to plan and states he will buy motrin and tylenol OTC - Medication Orders Current Medication Orders: Cyclobenzaprine HCl (Flexeril) 10 mg PO STAT STA Stop: 07/19/18 01:49 Ketorolac Tromethamine (Toradol) 30 mg IM STAT STA Stop: 07/19/18 01:49 Disposition/Present on Arrival - Present on Arrival Any Indicators Present on Arrival: No History of DVT/PE: No History of Uncontrolled Diabetes: No Urinary Catheter: No History Surgical Site Infection Following: None - Disposition Have Diagnosis and Disposition been Completed?: Yes Diagnosis: Muscle strain, Neck pain Disposition: HOME/ ROUTINE Disposition Time: 02:28 Condition: STABLE Discharge Instructions (ExitCare): Neck Pain, Muscle Strain (DC) Additional Instructions: NAYAN HILTON, thank you for letting us take care of you today. Your provider was Gato Kessler and you were treated for shoulder problem (left). The emergency medical care you received today was directed at your acute symptoms. If you were prescribed any medication, please fill it and take as directed. It may take several days for your symptoms to resolve. Return to the Emergency Department if your symptoms worsen, do not improve, or if you have any other problems. Please contact your doctor or call one of the physicians/clinics you have been referred to that are listed on the Patient Visit Information form that is included in your discharge packet. Bring any paperwork you were given at discharge with you along with any medications you are taking to your follow up visit. Our treatment cannot replace ongoing medical care by a primary care provider outside of the emergency department. Thank you for allowing the [facility] team to be part of your care today. If you had an X-Ray or CT scan: A Radiologist will review the ED reading if any change in treatment is needed we will contact you. If you had a blood, urine, or wound culture: It will take several days for the results, if any change in treatment is needed we will contact you. If you had an STI test: It will take 48 hours for the results. Please call after 1 week if you have not heard back. Referrals: [facility] [Outside] - Follow up with primary [facility] [Outside] - Follow up with primary [facility] [Outside] - Follow up with primary Jillian Oreilly MD [Medical Doctor] - Follow up with primary Forms: [facility] ([place])
== END 2018-07-19 02:50 | disposition home or self-care (01) ==
LOC: ED 01:38
DX: S16.1XXA Strain of muscle, fascia and tendon at neck level, initial encounter (principal); M54.2 Cervicalgia; X58.XXXA Exposure to other specified factors, initial encounter
CPT/HCPCS: 96372; 99283; J1885